=== PATIENT | male | born 1970 | race Caucasian/White ===

== ENCOUNTER 2017-08-04 13:39 | Emergency (ER) | payer BC ==
[2017-08-04] MEDS ORDERED: Acetaminophen 325 MG Tab PO ONE (14:12)
--- NOTE | 2017-08-04 15:20 | EDM.PDOC ---
ED HPI GENERAL MEDICAL PROBLEM - General Chief Complaint: Upper Extremity Injury/Pain Stated Complaint: LT WRIST INJURY Time Seen by Provider: 08/04/17 13:54 Source of Information: Reports: Patient, RN Notes Reviewed - History of Present Illness INITIAL COMMENTS - FREE TEXT/NARRATIVE: 47 year old male injure L wrist, was "giving his dog a bath at the dog wash", slipped, fell unto L hand, severe pain L wrist, no other pain or injury. 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: Other (see below) Other Treatments COMPUTER AIDED DESIGN DESIGNER: advil Left Wrist Pain Score (Numeric/FACES): 9 - Related Data Allergies Allergy/AdvReac Type Severity Reaction Status Date / Time No Known Allergies Allergy Verified 08/04/17 13:56 Home Meds: Home Meds Acetaminophen/HYDROcodone [[place] 325-5 MG] 1 tab PO Q6H PRN #10 tablet 08/04/17 [Rx] Past Medical History Respiratory History: Reports: Asthma Social & Family History - Tobacco Use Smoking Status *Q: Current Every Day Smoker Years of Tobacco use: 20 Packs/Tins Daily: 0.3 - Caffeine Use Caffeine Use: Reports: Coffee, Tea - Recreational Drug Use Recreational Drug Use: No Review of Systems - Review of Systems Review Of Systems: See Below Mouth/Throat: Reports: No Symptoms Respiratory: Denies: Shortness of Breath, Pleuritic Chest Pain Cardiovascular: Denies: Chest Pain GI/Abdominal: Denies: Nausea, Vomiting Musculoskeletal: Reports: Joint Pain (L wrist) Skin: Reports: No Symptoms Neurological: Denies: Numbness, Tingling, Weakness ED EXAM, GENERAL - Physical Exam Exam: See Below General Appearance: Alert, Moderate Distress Head: Atraumatic Neck: Supple Respiratory/Chest: No Respiratory Distress Peripheral Pulses: 4+: Radial (L) Extremities: Joint Swelling (L wrist), Other (moderate diffuse tenderness L wrist, pain with motion) Neurological: No Motor/Sensory Deficits Skin Exam: Warm, Dry, Normal Color, Other (no open lac) ED TRAUMA EXTREMITY PROCEDURES - Splinting Left Upper Extremity Splint Site: L wrist, forearm Pre-Procedure NV Status: Normal Post-Procedure NV Status: Normal Splint Material: Fiberglass Splint Design: Volar Applied & Form Fitted By: Provider Provider Post-Splint Application NV Check: NV Status Normal Course - Vital Signs Last Recorded V/S: Last Vital Signs Temp 96.8 F 08/04/17 13:59 Pulse 76 08/04/17 13:59 Resp 20 08/04/17 13:59 BP 131/83 08/04/17 13:59 Pulse Ox 97 08/04/17 13:59 - Orders/Labs/Meds Meds: Medications Discontinued Medications Generic Name Dose Route Start Last Admin Trade Name Ish PRN Reason Stop Dose Admin Acetaminophen 975 mg 08/04/17 14:12 08/04/17 14:23 Tylenol PO 08/04/17 14:13 975 mg NOW ONE Administration - Re-Assessments/Exams Free Text/Narrative Re-Assessment/Exam: 08/07/17 10:20 X rays did show fx of distal L radius, placed in FG splint. Departure - Departure Time of Disposition: 15:16 Disposition: Home, Self-Care 01 Condition: Fair Clinical Impression: Fracture, radius, distal Qualifiers: Encounter type: initial encounter Fracture type: closed Fracture morphology: unspecified fracture morphology Laterality: left Qualified Code(s): S52.502A - Unspecified fracture of the lower end of left radius, initial encounter for closed fracture - Discharge Information Prescriptions: Acetaminophen/HYDROcodone [[place] 325-5 MG] 1 tab PO Q6H PRN #10 tablet PRN Reason: Pain Instructions: Radial Head Fracture, [id number], Cast or Splint Care, Adult Referrals: PCP,None [Primary Care Provider] - Forms: ED Department Discharge Additional Instructions: L wrist and forearm splint, L arm cradle as needed for comfort, keep hand and wrist elevated as much as possible, alternate tylenol and ibuprofen as needed for pain, you may take hydrocodone if needed for severe pain, do not take tylenol and hydrocodone at the same time, Follow up with Dr Palacios in 3 days or one of our other Orthopedists if unable to get into Dr Palacios.
--- NOTE | 2017-08-05 07:58 | CR ---
Left wrist: Three views of the left wrist were obtained. Comparison: No prior wrist exam. Slightly comminuted fracture identified within the distal metaphysis of the radius. Minimal posterior impaction is seen with minimal posterior displacement. Soft tissue swelling is identified. No additional fracture or other bony abnormality is seen. Impression: 1. Distal left radial fracture as described above. 2. Soft tissue swelling. Diagnostic code #3
== END 2017-08-04 15:30 | disposition home or self-care (01) ==
LOC: JD.ED 13:39
DX: S52.502A Unspecified fracture of the lower end of left radius, initial encounter for closed fracture (principal); J45.909 Unspecified asthma, uncomplicated; W01.198A Fall on same level from slipping, tripping and stumbling with subsequent striking against other object, initial encounter
CPT/HCPCS: 29125; 73110; 99283; A9270